=== PATIENT | female | born 1995 | race Caucasian/White ===

== ENCOUNTER 2016-09-10 10:29 | Emergency (ER) | payer OTHER ==
[~2016-09-10] VITALS: Ht 165.1 cm; Wt 98.6 kg
[~2016-09-10 10:29] MED LIST: IBUP600T26 PO; NUVAMIS PV; ROBA750T3 PO
[2016-09-10 10:31] VITALS: BP 127/90; PULSE 59; RESP 15; TEMP 98.1; O2SAT 98
[2016-09-10] MEDS ORDERED: NUVAMIS VAGINAL (11:09)
--- NOTE | 2016-09-10 11:47 | PD ---
HPI Chief Complaint: ENT Complaint Time Seen by Provider: 11:43 Travel History International Travel<30 days: No Contact w/Intl Traveler<30days: No Traveled to known affect area: No History of Present Illness HPI 29-year-old female presents to the emergency Department with complaint of sore throat times one week. Has not taken her temperature and cannot report a MAXIMUM TEMPERATURE but doesn't think that she's been feverish. Denies difficulty swallowing, unusual drooling, lump in throat. Reports painful swallowing. Reports voice is different. Reports occasional cough. Denies ear pain, nasal congestion. Reports headache. Denies abdominal pain, nausea, vomiting. Has tried taking Zicam and [place] with no relief of symptoms. Allergic to erythromycin. Denies significant past medical history. No other modifying factors or associated signs and symptoms. PFSH Past Medical History ?: Not LMP: AUG 2016 Social History Alcohol Use: No Tobacco Use: No Substance Use: No Allergies-Medications (Allergen,Severity, Reaction): Coded Allergies: Erythromycin (Verified Adverse Reaction, Severe, 09/10/16) yeast infection Reported Meds & Prescriptions Reported Meds & Active Scripts Active Reported Nuvaring Vaginal Insert (Etonogestrel-Ethinyl Estradiol Vaginal Insert) 0.120- 0.015 Mg/24 Hr Vagring 1 Applic VAGINAL DIRECTED Review of Systems Except as stated in HPI: all other systems reviewed are Neg Physical Exam Narrative GENERAL: Well-nourished, well-developed female patient, in no acute distress; afebrile, nontoxic-appearing SKIN: Warm and dry. No rash. HEAD: Atraumatic. Normocephalic. EYES: Pupils equal and round at 3 mm with brisk reaction. No scleral icterus. No injection or drainage. PERRLA. ENT: Mucosa pink and dry. Pharynx with erythema; without exudate, and edema. No Uvular edema. No uvular, palatal, or tonsillar deviation. Airway patent. Voice is hoarse. EARS: Bilateral pinnae and external canals appear within normal limits. Bilateral tympanic membranes without erythema, dullness or perforation.. NECK: Trachea midline. No Anterior cervical lymphadenopathy and tenderness. CARDIOVASCULAR: Regular rate and rhythm. No murmur appreciated. RESPIRATORY: No accessory muscle use. Clear to auscultation. Breath sounds equal bilaterally. GASTROINTESTINAL: Abdomen soft, non-tender, nondistended. Hepatic and splenic margins not palpable. Bowel sounds are active 4 quadrants. MUSCULOSKELETAL: No obvious deformities. No clubbing. No cyanosis. No edema. NEUROLOGICAL: Awake and alert. Oriented 3. No obvious cranial nerve deficits. Motor grossly within normal limits. Normal speech. Moves all extremities. PSYCHIATRIC: Appropriate mood and affect; insight and judgment normal. Data Data Last Documented VS Vital Signs Date Time Temp Pulse Resp B/P Pulse Ox O2 Delivery O2 Flow Rate FiO2 09/10/16 10:31 98.1 59 15 127/90 98 Orders Group A Rapid Strep Screen (09/10/16 11:43) Strep Culture (Group A) (09/10/16 11:50) MDM Medical Decision Making Medical Screen Exam Complete: Yes Emergency Medical Condition: Yes Medical Record Reviewed: Yes Differential Diagnosis Viral pharyngitis, strep pharyngitis, less likely peritonsillar abscess Narrative Course 21-year-old female with sore throat 7 days. Oropharynx is with erythema but without edema or exudate. Patient is afebrile in the ER. I offered the patient may nonnarcotic for pain and she declined at this time. Rapid strep ordered. 1257: Rapid strep negative. Magic mouthwash prescribed for home. Patient is medically cleared and stable for discharge. Discussed reasons to return to the emergency department. Instructed patient to follow up with primary care provider. Patient agrees with treatment plan. The patients vital signs are stable and the patient is stable for outpatient follow-up and treatment. Patient discharged home, stable and in no acute distress. Diagnosis Primary Impression: Pharyngitis Qualified Code: J02.9 - Pharyngitis, unspecified etiology Referrals: Primary Care Physician Patient Instructions: General Instructions, Pharyngitis (ED) Additional Instructions: Get plenty of sleep/rest Rest your voice Drink plenty of fluids to prevent dehydration Use warm saltwater gargles to soothe throat pain Use an air humidifier/turn off ceiling fans Use throat lozenges as needed for sore throat Use ibuprofen or acetaminophen as needed to relieve pain and fever Follow-up with your primary care provider Return immediately to the emergency department Med/Other Pt SpecificInfo: Prescription(s) given Scripts Bnprfgep-Lllteerlijqdkjs-Prursjmey Liq (Magic Mouthwash Adult Liq)120 Ml Susp5 Ml SWISH-SPIT Q3HR PRN (SORE THROAT) #120 ML Ref 0 Each 5 mL contains: Nystatin 200,000 units, Diphenhydramine 4.25 mg, Viscous Lidocaine 10 mg, [place]acios syrup 0.8 mL Prov:Marilee Darnell 09/10/16 Disposition: 01 DISCHARGE HOME Condition: Stable Marilee Darnell Sep 10, 2016 11:47
[2016-09-10] MEDS ORDERED: MAGICADU2 SWISH-SPIT (12:57)
== END 2016-09-10 13:57 | disposition home or self-care (01) ==
LOC: NEPB 10:29
DX: J02.9 Acute pharyngitis, unspecified (principal)
CPT/HCPCS: 87081; 87880; 99284

== ENCOUNTER 2017-03-23 16:35 | Emergency (ER) | payer OTHER ==
[~2017-03-23] VITALS: Ht 167.6 cm; Wt 94.0 kg
[~2017-03-23 16:35] MED LIST changes: -IBUP600T26 PO; +MAGICADU2 SWISH-SPIT; -NUVAMIS PV; +NUVAMIS VAGINAL; -ROBA750T3 PO
[2017-03-23 16:36] VITALS: BP 135/83; PULSE 68; RESP 16; TEMP 98.1; O2SAT 100
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
[2017-03-23 17:44] VITALS: BP 120/83; TEMP 98.1
== END 2017-03-23 17:44 | disposition home or self-care (01) ==
LOC: NEPK 16:35
DX: S39.012A Strain of muscle, fascia and tendon of lower back, initial encounter (principal); V43.52XA Car driver injured in collision with other type car in traffic accident, initial encounter
CPT/HCPCS: 99282